=== PATIENT | male | born 1940 | race Caucasian/White ===

== ENCOUNTER 2019-03-11 08:02 | Emergency (ER) | payer OTHER ==
[~2019-03-11] VITALS: Ht 167.6 cm; Wt 92.5 kg
[2019-03-11] MEDS ORDERED: AVALIDE 300-121 EACH (08:30)
[2019-03-11] MEDS ORDERED: LIPITOR20 MG (08:30)
[2019-03-11] MEDS ORDERED: AVODART0.5 MG (08:31)
== END 2019-03-11 12:15 | disposition home or self-care (01) ==
LOC: ER 08:02
DX: M94.0 Chondrocostal junction syndrome [Tietze] (principal)

== ENCOUNTER 2019-10-13 20:15 | Emergency (ER) | payer OTHER ==
[~2019-10-13] VITALS: Ht 165.1 cm; Wt 83.5 kg
[~2019-10-13 20:15] MED LIST: AVALIDE 300-121 EACH; AVODART0.5 MG; LIPITOR20 MG
[2019-10-13] MEDS ORDERED: SINGULAIR10 MG (20:49)
[2019-10-14] MEDS ORDERED: ZYNCOF 20-400120 ML PO (03:44)
[2019-10-14] MEDS ORDERED: OSEL75CA PO (03:44)
== END 2019-10-14 03:49 | disposition home or self-care (01) ==
LOC: ER 20:15
DX: J11.1 Influenza due to unidentified influenza virus with other respiratory manifestations (principal); R50.9 Fever, unspecified